=== PATIENT | male | born 1945 | race Two or more races ===

== ENCOUNTER 2021-02-10 11:33 | Emergency (ER) | payer MEDICARE, OTHER ==
[~2021-02-10] VITALS: Ht 180.3 cm; Wt 80.7 kg
[2021-02-10 12:32] LABS: Basophils # (auto) 0.1 10 ^3/uL (0-0.2); Basophils % (auto) 0.3 % (0.0-2.0); Eosinophils # (auto) 0.1 10 ^3/uL (0-0.8); Eosinophils % (auto) 0.2 % (0.0-7.0); Hematocrit 45.8 % (41.0-53.0); Hemoglobin 16.1 g/dL (13.5-17.5); Lymphocytes # (auto) 1.1 10 ^3/uL (0.4-5.4); Lymphocytes % (auto) 5.5 % (10.0-50.0); Mean Corpuscular Hemoglobin 31.1 pg (28.0-32.0); Mean Corpuscular Hgb Conc. 35.2 g/dL (32.0-36.0); Mean Corpuscular Volume 88.3 fL (80.0-100.0); Monocytes # (auto) 2.2 10 ^3/uL (0-1.3); Monocytes % (auto) 10.6 % (0.0-12.0); Neutrophils % (auto) 83.4 % (37.0-80.0); Red Blood Cells 5.18 10^6/uL (4.5-5.90); Red Cell Distribution Width 13.1 % (11.8-14.3); White Blood Cell 20.5 10^3/uL (4.4-10.8)
[2021-02-10 12:51] LABS: Calcium 8.2 mg/dL (8.5-10.1); Potassium 3.4 mmol/L (3.5-5.1)
[2021-02-10 13:00] LABS: Albumin 3.3 g/dL (3.4-5.0); BUN/Creatinine Ratio 13.9; Bilirubin, Total 0.9 mg/dL (0.2-1.0); Total Protein 6.5 g/dL (6.4-8.2)
[2021-02-10] MEDS ORDERED: cefTRIAXone W LIDOCAINE 1 GM IM IM ONE (13:45)
[2021-02-10 14:03] LABS: Urine Bacteria NONE SEEN /hpf (None Seen); Urine Blood 3+ /uL (Negative); Urine Mucus FEW (None Seen); Urine Specific Gravity 1.012 (1.001-1.035); Urine WBC 4 /hpf (0 - 3)
[2021-02-10] MEDS ORDERED: LIDOCAINE 1% HCL (LOCAL ANESTH.) INJ 20ML MDV ONE (15:04)
[2021-02-10] MEDS ORDERED: cefTRIAXone SOD 1,000 MG VL ONE (15:04)
[2021-02-10 15:45] VITALS: BP 178/93
== END 2021-02-10 15:52 | disposition home or self-care (01) ==
LOC: ER 11:33
DX: R33.9 Retention of urine, unspecified (principal); N39.0 Urinary tract infection, site not specified; I10 Essential (primary) hypertension; I25.10 Atherosclerotic heart disease of native coronary artery without angina pectoris; Z88.2 Allergy status to sulfonamides
CPT/HCPCS: 36415; 71045; 74176; 80053; 81001; 84484; 85025; 96372; 99285; J0696; J2001